=== PATIENT | male | born 1965 | race Caucasian/White ===

== ENCOUNTER 2018-03-01 02:47 | Inpatient (IN) | payer OTHER ==
[~2018-03-01] VITALS: Ht 185.4 cm; Wt 127.0 kg
[~2018-03-01 02:47] MED LIST: LABETALOL HCL200 MG PO; LOSARTAN POTAS100 MG PO
[2018-03-01] MEDS ORDERED: KETOROLAC TROMETHAMINE 30 MG/ML VIAL IV STA (03:15)
[2018-03-01] MEDS ORDERED: ONDANSETRON HCL INJ 2 MG/ML VIAL IV STA (03:15)
[2018-03-01] MEDS ORDERED: HYDROMORPHONE 1MG/1ML INJ ONE (03:15)
[2018-03-01] MEDS ORDERED: KETOROLAC TROMETHAMINE 30 MG/ML VIAL ONE (03:15)
[2018-03-01] MEDS ORDERED: PANTOPRAZOLE 40 MG 10ML VIAL IV STA (03:15)
[2018-03-01] MEDS ORDERED: HYDROMORPHONE 1MG/1ML INJ IV STA (03:15)
[2018-03-01] MEDS ORDERED: SODIUM CHLORIDE 0.9% 1000ML 1,000 ML IV STA (03:15)
[2018-03-01] MEDS ORDERED: ONDANSETRON HCL INJ 2 MG/ML VIAL ONE ×2 (03:15→18:09)
[2018-03-01] MEDS ORDERED: SODIUM CHLORIDE 0.9% 1000ML 1,000 ML ONE (03:15)
[2018-03-01 03:33] LABS: BASOPHILS % 0.4 % (0.0-1.0); EOSINOPHILS # (AUTO) 0.1 (0.0-0.4); EOSINOPHILS % 1.4 % (0.0-6.0); HEMATOCRIT 40.9 % (38.2-49.6); HEMOGLOBIN 14.5 g/dL (14.0-18.0); LYMPHOCYTES # (AUTO) 1.9 (1.0-3.2); LYMPHOCYTES % 19.7 % (18.0-39.1); MEAN CORPUSCULAR HEMOGLOBIN 29.8 pg (28-32); MEAN CORPUSCULAR HGB CONC 35.5 g/dL (31-35); MEAN CORPUSCULAR VOLUME 84.2 fL (81-99); MONOCYTES # (AUTO) 0.7 (0.2-0.8); MONOCYTES % 6.7 % (4.4-11.3); NEUTROPHILS # (AUTO) 7.1 (2.1-6.9); NEUTROPHILS % 71.7 % (38.7-80.0); PLATELET COUNT 159 x10e3/uL (140-360); RED BLOOD COUNT 4.86 x10e6/uL (4.3-5.7); RED CELL DISTRIBUTION WIDTH 12.7 % (11.7-14.4)
[2018-03-01 03:45] LABS: INR 1.09; PROTHROMBIN TIME 13.3 seconds (11.9-14.5)
[2018-03-01 03:46] LABS: PARTIAL THROMBOPLASTIN TIME 27.1 seconds (23.8-35.5)
[2018-03-01 03:56] LABS: ALANINE AMINOTRANSFERASE 44 IU/L (0-55); ALBUMIN 4.4 g/dL (3.5-5.0); ALBUMIN/GLOBULIN RATIO 1.5 (0.8-2.0); ALKALINE PHOSPHATASE 74 IU/L (40-150); AMYLASE 66 U/L (25-125); ANION GAP 13.6 mmol/L (8-16); BLOOD UREA NITROGEN 22 mg/dL (7-26); BUN/CREATININE RATIO 18 (6-25); CALCIUM 9.8 mg/dL (8.4-10.2); CARBON DIOXIDE 27 mmol/L (22-29); CHLORIDE 104 mmol/L (98-107); CREATINE KINASE 343 IU/L (30-200); CREATININE, SERUM 1.22 mg/dL (0.72-1.25); EST GLOMERULAR FILTRATION RATE > 60 ML/MIN (60-); GLUCOSE 140 mg/dL (74-118); LIPASE 36 U/L (8-78); POTASSIUM 3.6 mmol/L (3.5-5.1); SODIUM 141 mmol/L (136-145)
--- NOTE | 2018-03-01 04:10 | Diagnostic Imaging Report ---
CHEST SINGLE (PORTABLE), 03/01/2018 3:15 AM Technique: CHEST SINGLE (PORTABLE) Comparison: None available. Clinical history: \S\ABD PAIN, N/V \[id number] \S\0338 Findings: Limited portable technique with overpenetration. Normal cardiomediastinal silhouette. No consolidation, pleural effusion or pneumothorax. Impression: Limited study without acute abnormality. Signed by: Dr Payton Ch MD on 03/01/2018 4:07 AM
--- NOTE | 2018-03-01 04:22 | Diagnostic Imaging Report ---
EXAM: CT ABDOMEN/PELVIS WO DATE: 03/01/2018 3:15 AM INDICATION: Right flank pain, stone protocol COMPARISON: None TECHNIQUE: The abdomen and pelvis were scanned using a multidetector helical scanner. Coronal and sagittal reformations were obtained. Routine protocol performed. IV Contrast: 0 ml Isovue 300/370 FINDINGS: Lack of IV contrast decreases sensitivity in evaluating abdominal and pelvic organs. LOWER THORAX: No consolidations LIVER/BILIARY: No masses. No ductal dilatation. GALLBLADDER: Cholelithiasis. SPLEEN: Unremarkable PANCREAS: Unremarkable ADRENALS: No nodules KIDNEYS: No renal calculi. A 6 to 7 mm distal right ureteral calculus just above the UVJ results in moderate hydroureteronephrosis. There is marked right perinephric and periureteral fluid. A 4.8 mm stone is seen in the distal left ureter without hydronephrosis. GI TRACT: No evidence of bowel obstruction or appendicitis. Diverticulosis. VESSELS: A infrarenal IVC filter is noted with extrusion of several struts outside the expected lumen. PERITONEUM/RETROPERITONEUM: No free air or fluid LYMPH NODES: No lymphadenopathy REPRODUCTIVE ORGANS/BLADDER: Unremarkable BONES: Postsurgical changes with pubic symphysis and left SI joint ORIF and partially imaged right femoral hardware. IMPRESSION: 1. Right distal ureteral calculus (6-7 mm) with moderate hydroureteronephrosis. The degree of perinephric fluid and inflammation raises the possibility of calyceal rupture or superimposed infection. 2. Left distal ureteral calculus (4.8 mm) without hydronephrosis. Signed by: Dr Payton Ch MD on 03/01/2018 4:18 AM
[2018-03-01] MEDS ORDERED: CEFTRIAXONE SOD 1 GM VIAL IV STA (04:31)
[2018-03-01 04:46] LABS: BILIRUBIN,URINE NEGATIVE (NEGATIVE); CLARITY,URINE CLEAR (CLEAR); COLOR,URINE YELLOW (YELLOW); KETONES,URINE NEGATIVE (NEGATIVE); LEUKOCYTE ESTERASE ,URINE NEGATIVE (NEGATIVE); NITRITE,URINE NEGATIVE (NEGATIVE); PROTEIN,URINE DIPSTICK TRACE (NEGATIVE); URINE UROBILINOGEN 0.2 mg/dL (0.2 - 1)
[2018-03-01 04:49] LABS: AMORPHOUS SEDIMENT,URINE MODERATE (FEW); BACTERIA,URINE MANY /HPF; EPITHELIAL CELLS,URINE RARE /LPF; RBC,URINE 21-50 /HPF (0-5)
[2018-03-01] MEDS ORDERED: HYDROMORPHONE 1MG/1ML INJ IV PRN (05:30)
[2018-03-01] MEDS ORDERED: ONDANSETRON HCL INJ 2 MG/ML VIAL IV PRN (05:30)
[2018-03-01] MEDS: SODIUM CHLORIDE 0.9% 1000ML 1,000 ML IV SCH ×2 (07:14→16:59)
[2018-03-01 08:13] VITALS: BP 139/67
[2018-03-01] MEDS ORDERED: PANTOPRAZOLE 40 MG 10ML VIAL IV SCH (09:00)
[2018-03-01 10:21] VITALS: BP 139/67
[2018-03-01] MEDS ORDERED: HYDROCHLOROTHIA25 MG (10:44)
[2018-03-01 10:45] VITALS: BP 139/67
[2018-03-01] MEDS ORDERED: CARVEDILOL12.5 MG PO (10:45)
[2018-03-01] MEDS ORDERED: ATORVASTATIN CA20 MG PO (10:45)
[2018-03-01 11:55] VITALS: BP 137/67
[2018-03-01] MEDS ORDERED: IOPAMIDOL 610MG/1ML 300 MG/ML VIAL IV ONE ×2 (13:28→13:56)
[2018-03-01] MEDS ORDERED: BELLADONNA/OPIUM 30 MG SUPP RC ONE (13:28)
[2018-03-01] MEDS ORDERED: FENTANYL CITRATE/PF 100MCG/2 ML INJ ONE (15:00)
[2018-03-01] MEDS ORDERED: MIDAZOLAM HCL 2 MG/2 ML VIAL ONE (15:00)
--- NOTE | 2018-03-01 15:09 | Operative Report ---
DATE OF PROCEDURE: March 01, 2018 PREOPERATIVE DIAGNOSIS: 1. Bilateral ureterolithiasis. 2. Right hydroureteronephrosis. 3. Microhematuria. 4. Urinary tract infections. POSTOPERATIVE DIAGNOSIS: 1. Bilateral ureterolithiasis. 2. Right hydroureteronephrosis. 3. Microhematuria. 4. Urinary tract infections. PROCEDURE PERFORMED: 1. Cystourethroscopy with bilateral ureteral catheterization and retrograde ureteropyelography (separate procedure performed for the urinary tract infections and microhematuria). 2. Interpretation of retrograde ureteropyelography. 3. Supervision of fluoroscopy. No radiologist present. 4. Cystourethroscopy with insertion of bilateral indwelling ureteral stents (separate procedure performed for the stones and hydronephrosis). ANESTHESIA: General. COMPLICATIONS: None. CLINICAL SUMMARY: Santiago Sandoval is a 52-year-old man with the above preoperative diagnoses. He is brought for the above procedures. He is aware of the risks of bleeding, infection, injury to adjacent structures, need for additional procedures and elected to proceed. He also understands he will have temporary indwelling ureteral stents that require followup and removal. He understood all these risks and elected to proceed. OPERATIVE PROCEDURE IN DETAIL: Informed consent was verified. Santiago Sandoval was properly identified, taken to the operating room and placed on the cystoscopy table in supine position. Anesthesia was uneventfully begun. Patient was then carefully and gently repositioned in the dorsal lithotomy position with all pressure points well padded. His genitalia were prepared and draped in the usual sterile fashion. A 22.5-Bahraini cystoscope sheath with the visual obturator in place was atraumatically inserted into patient's urethra. It was guided down the unremarkable urethra through the normal sphincteric region through the prostate bed, which was significant for very early BPH without any significant visual obstruction. We entered the patient's bladder where panendoscopy revealed minimal trabeculations but no tumors, no stones and no diverticula. Normally positioned and configured ureteral orifices were identified. A 5-Bahraini open-ended catheter was inserted into the patient's right ureter. Retrograde ureteropyelograms were performed. We then negotiated a guidewire into the more proximal portion of the right ureter past the open-ended catheter. We obtained a clear hydronephrotic drip. We injected contrast. Then with cystoscopic and fluoroscopic guidance, a right-sided indwelling ureteral stent was then placed. It was coiled in the patient's left kidney as well as the patient's bladder. The retaining suture was cut short. An identical maneuver was performed on the left-hand side. Interpretation of retrograde ureteropyelography: Contrast was instilled in retrograde fashion bilaterally. There was a very large stone in the distal right ureter with extremely severe hydroureteronephrosis and a bifid collecting system. The stent was in good position coiled in the patient's upper pole mayo as well as the patient's bladder at the end of the case. On the left-hand side, there was no hydronephrosis. I really could not visualize well the ureter on today's study to determine whether or not the calcification noted on CT is a stone. The stent on the left-hand side was coiled in the patient's renal pelvis as well as the patient's bladder. The stents utilized in the patient were a 6-Bahraini x 30 cm on the right and a 6-Bahraini x 26 cm on the left. The patient's bladder was then drained. The cystoscope was withdrawn. A belladonna and opium suppository was placed, revealing a 25-gram prostate, smooth, non-fluctuant, without any nodules. Patient was uneventfully reversed from anesthesia and taken to the recovery room in stable condition. There were no complications to the procedure. Patient tolerated the procedure well. Explicit postoperative instructions were given, and we will reevaluate the patient tomorrow and hopefully discharge him home. Plans will be to return the patient to the operating room in several weeks to remove his stent, perform bilateral ureteroscopy and laser the stone as needed. Job#: [id number] EV
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
[2018-03-01] MEDS ORDERED: CEFTRIAXONE SOD 1 GM VIAL IV SCH (16:00)
[2018-03-01 16:06] VITALS: BP 132/60
[2018-03-01] MEDS ORDERED: LIDOCAINE HCL 2% LOCAL INJ 5 ML SDV VIAL INJ ONE (18:09)
[2018-03-01] MEDS ORDERED: SEVOFLURANE INHAL SOLN 250 ML PEN BTL ONE (18:09)
[2018-03-01] MEDS ORDERED: PROPOFOL IV EMULSION 10 MG/ML 20 ML VIAL ONE (18:09)
[2018-03-01] MEDS ORDERED: EPHEDRINE SULFATE INJ 50 MG/10 ML SYR ONE (18:09)
[2018-03-01] MEDS ORDERED: DEXAMETHASONE SOD PHOS INJ 4 MG/ML VIAL ONE (18:09)
--- NOTE | 2018-03-01 18:13 | Discharge Summary ---
Patient is a 52-year-old male with a past medical history positive for hypertension came here with bilateral kidney stones, status post bilateral stent placement. Patient going home today if okay with Dr. Deleon, urology. He is to see Dr. Deleon in a week. PHYSICAL EXAMINATION HEART: Shows regular rhythm. Normal S1 and S2 sounds. LUNGS: Clear bilaterally. ABDOMEN: Soft. EXTREMITIES: Shows a prosthesis on the left leg. VITALS: Blood pressure 132/60, temperature is 96.2, heart rate 78 per minute, respiratory rate 16 per minute, oxygen saturation 94%. FINAL IMPRESSION 1. Bilateral kidney stones, status post bilateral stent placement. 2. Hypertension. PLAN OF TREATMENT: Patient is going to discharged on Cipro 500 mg twice a day for 7-10 days. Follow up with Dr. Deleon, urologist, in a week. The patient is to come to the ER should the symptoms worsen. GEORGIE HURT MD Job#: [id number] [place]
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
== END 2018-03-01 18:46 | disposition home or self-care (01) | DRG 690 ==
LOC: ER 02:47 → ERHOLD 05:27 → MED/SURG 07:45
PROVIDERS: ADMIT Internal Medicine; ATTEND Internal Medicine
PROC: BT141ZZ Fluoroscopy of Kidneys, Ureters and Bladder using Low Osmolar Contrast (ICD-10-PCS; 2018-03-01)
PROC: 0T788DZ Dilation of Bilateral Ureters with Intraluminal Device, Via Natural or Artificial Opening Endoscopic (ICD-10-PCS; principal; 2018-03-01 13:34)
DX: N13.6 Pyonephrosis (principal); I10 Essential (primary) hypertension; Z86.718 Personal history of other venous thrombosis and embolism; E78.00 Pure hypercholesterolemia, unspecified; G47.30 Sleep apnea, unspecified; K80.20 Calculus of gallbladder without cholecystitis without obstruction; N43.40 Spermatocele of epididymis, unspecified; Q62.8 Other congenital malformations of ureter; Z89.612 Acquired absence of left leg above knee; Z28.21 Immunization not carried out because of patient refusal
CPT/HCPCS: 36415; 71045; 74176; 74420; 80053; 81001; 82150; 82550; 82553; 83690; 83735; 84484; 85025; 85610; 85730; 87086; 93005; 99284; C2617; J0696; J1100; J1170; J1885; J2001; J2250; J2405; J7030